=== PATIENT | male | born 1945 | race Caucasian/White ===

== ENCOUNTER 2020-02-29 10:46 | Emergency (ER) | payer OTHER, MEDICARE, BC ==
--- NOTE | 2020-02-29 11:12 | EKG REPORT ---
SEVERITY:- ABNORMAL ECG - SINUS RHYTHM SUPRAVENTRICULAR BIGEMINY RIGHT AXIS DEVIATION LOW VOLTAGE IN FRONTAL LEADS : Confirmed by: Vania Mcelroy MD 29-Feb-2020 11:12:13
--- NOTE | 2020-02-29 11:21 | ER Document Report ---
ED Medical Screen (RME) - General Chief Complaint: Constipation Stated Complaint: CONSTIPATION Time Seen by Provider: 02/29/20 11:14 Primary Care Provider: HARI MARSHALL PA-C [Primary Care Provider] - Follow up as needed Notes: HPI: 74-year-old male with prior history of cholecystectomy presenting for 10 days of constipation with mild right upper abdominal pain. Has not had nausea vomiting or fever. Patient has been using milk of magnesia at home without improvement in the constipation does not relate chronic constipation issues. Has not had a fever. PHYSICAL EXAMINATION: Bowel sounds are normal. Patient with minimal tenderness through the epigastric region on palpation. Lung sounds are clear to auscultation slightly abnormal rate and rhythm. EKG shows a bigeminal rhythm with a heart rate of 93, abnormal EKG I have greeted and performed a rapid initial assessment of this patient. A comprehensive ED assessment and evaluation of the patient, analysis of test results and completion of medical decision making process will be conducted by an additional ED providers. TRAVEL OUTSIDE OF THE [place] IN LAST 30 DAYS: No - Related Data Allergies/Adverse Reactions: No Known Allergies Allergy (Unverified 02/29/20 11:17) Past Medical History Pulmonary Medical History: Reports: Hx COPD Past Surgical History: Reports: Hx Genitourinary Surgery - Immunizations Hx Diphtheria, Pertussis, Tetanus Vaccination: No Physical Exam - Vital signs Vitals: Temp Pulse Resp BP Pulse Ox 97.6 F 41 L 16 142/68 H 95 02/29/20 10:54 02/29/20 10:54 02/29/20 10:54 02/29/20 10:54 02/29/20 10:54 Course - Vital Signs Vital signs: Temp Pulse Resp BP Pulse Ox 97.6 F 41 L 16 142/68 H 95 02/29/20 10:54 02/29/20 10:54 02/29/20 10:54 02/29/20 10:54 02/29/20 10:54 Doctor's Discharge - Discharge Referrals: HARI MARSHALL PA-C [Primary Care Provider] - Follow up as needed
--- NOTE | 2020-02-29 11:44 | RADIOLOGY REPORT (SQ) ---
EXAM DESCRIPTION: ABDOMEN 2 VIEWS IMAGES COMPLETED DATE/TIME: 02/29/2020 11:32 am REASON FOR STUDY: abd pain/constipation COMPARISON: None. NUMBER OF VIEWS: Two views. TECHNIQUE: Supine and erect/decubitus radiographic images of the abdomen acquired. LIMITATIONS: None. FINDINGS: FREE AIR: None. No abnormal gas collections. LUNG BASES: Clear. BOWEL GAS PATTERN: Nonobstructive gas pattern. Moderate stool throughout the colon. CALCIFICATIONS: No suspicious calcifications. SOFT TISSUES: No gross mass or suggestion of organomegaly. HARDWARE: None in the abdomen. BONES: No acute fracture. No worrisome bone lesions. OTHER: No other significant finding. IMPRESSION: Moderate constipation. No evidence of mechanical obstruction. TECHNICAL DOCUMENTATION: JOB ID: [id number] 2010 [email or web address]- All Rights Reserved Reading location - IP/workstation name: [email or web address]
[2020-02-29 11:46] LABS: ABSOLUTE EOSINOPHILS # (AUTO) 0.1 10^3/uL (0.0-0.6); ABSOLUTE LYMPHOCYTES (AUTO) 1.5 10^3/uL (0.5-4.7); ABSOLUTE MONOCYTES (AUTO) 0.4 10^3/uL (0.1-1.4); ABSOLUTE NEUT (AUTO) 2.1 10^3/uL (1.7-8.2); BASOPHILS % (AUTO) 1.1 % (0-2); EOSINOPHILS % (AUTO) 1.6 % (0-6); HEMATOCRIT 45.2 % (37.9-51.0); HEMOGLOBIN 15.4 g/dL (13.5-17.0); LYMPHOCYTES % (AUTO) 36.2 % (13-45); MEAN CORPUSCULAR HGB CONC 34.1 g/dL (32.0-36.0); MEAN CORPUSCULAR VOLUME 97 fl (80-97); MONOCYTES % (AUTO) 8.9 % (3-13); PLATELET COUNT 180 10^3/uL (150-450); RED BLOOD COUNT 4.67 10^6/uL (4.35-5.55); SEGMENTED NEUTROPHILS % (AUTO) 52.2 % (42-78); TOTAL CELLS COUNTED % (AUTO) 100 %
[2020-02-29 11:52] LABS: ALKALINE PHOSPHATASE 52 U/L (38-126); ANION GAP 6 (5-19); ASPARTATE AMINO TRANSFERASE 27 U/L (17-59); BILIRUBIN,TOTAL 0.4 mg/dL (0.2-1.3); BLOOD UREA NITROGEN 13 mg/dL (7-20); CALCIUM 9.3 mg/dL (8.4-10.2); CARBON DIOXIDE 27 mmol/L (22-30); CHLORIDE 104 mmol/L (98-107); GLUCOSE 118 mg/dL (75-110); POTASSIUM 4.3 mmol/L (3.6-5.0); TOTAL PROTEIN 6.9 g/dL (6.3-8.2)
[2020-02-29 12:48] LABS: APPEARANCE,URINE CLEAR; BILIRUBIN,URINE NEGATIVE (NEGATIVE); COLOR,URINE STRAW; GLUCOSE, URINE NEGATIVE (NEGATIVE); KETONES,URINE TRACE mg/dL (NEGATIVE); LEUKOCYTE ESTERASE,URINE NEGATIVE (NEGATIVE); NITRITE,URINE NEGATIVE (NEGATIVE); PROTEIN,URINE NEGATIVE (NEGATIVE); URINE SPECIFIC GRAVITY 1.003; UROBILINOGEN,URINE NEGATIVE mg/dL (<2.0)
--- NOTE | 2020-02-29 13:04 | ER Document Report ---
ED General - General Chief Complaint: Constipation Stated Complaint: CONSTIPATION Time Seen by Provider: 02/29/20 11:14 Primary Care Provider: HARI MARSHALL PA-C [COMMUNITY BASED STAFF] - Follow up as needed Mode of Arrival: Ambulatory Information source: Patient TRAVEL OUTSIDE OF THE [place] IN LAST 30 DAYS: No - HPI Notes: Patient presents complaint of abdominal pain. He states is mainly in the right upper quadrant. It is mild and crampy. It is intermittent. Nothing makes better or worse. He states he is been unable to have a bowel movement for several weeks and he feels like he is constipated. He states he has chronic problems with constipation. He states he is had 3 colonoscopies in the past and they have all been normal. No vomiting or fevers. - Related Data Allergies/Adverse Reactions: No Known Allergies Allergy (Unverified 02/29/20 11:17) Past Medical History - General Information source: Patient - Social History Smoking Status: Never Smoker Frequency of alcohol use: None Drug Abuse: None Family History: None Pulmonary Medical History: Reports: Hx COPD Past Surgical History: Reports: Hx Genitourinary Surgery - Immunizations Hx Diphtheria, Pertussis, Tetanus Vaccination: No Review of Systems - Review of Systems Constitutional: denies: Chills, Fever Cardiovascular: denies: Chest pain, Palpitations Respiratory: denies: Cough, Short of breath -: Yes All other systems reviewed and negative Physical Exam - Vital signs Vitals: Temp Pulse Resp BP Pulse Ox 97.6 F 41 L 16 142/68 H 95 02/29/20 10:54 02/29/20 10:54 02/29/20 10:54 02/29/20 10:54 02/29/20 10:54 Interpretation: Bradycardic - General General appearance: Appears well, Alert - HEENT Head: Normocephalic, Atraumatic Eyes: Normal Pupils: PERRL - Respiratory Respiratory status: No respiratory distress Chest status: Nontender Breath sounds: Normal Chest palpation: Normal - Cardiovascular Rhythm: Other - Heart rate is irregular but in the 60s. Heart sounds: Normal auscultation Murmur: No - Abdominal Inspection: Normal Distension: No distension Bowel sounds: Normal Tenderness: Tender - Mild tenderness in the right upper quadrant. Organomegaly: No organomegaly - Back Back: Normal, Nontender - Extremities General upper extremity: Normal inspection, Nontender, Normal color, Normal ROM, Normal temperature General lower extremity: Normal inspection, Nontender, Normal color, Normal ROM, Normal temperature, Normal weight bearing. No: Tana's sign - Neurological Neuro grossly intact: Yes Cognition: Normal Orientation: AAOx4 Nelsy Coma Scale Eye Opening: Spontaneous Docena Coma Scale Verbal: Oriented Docena Coma Scale Motor: Obeys Commands Nelsy Coma Scale Total: 15 Speech: Normal Motor strength normal: LUE, RUE, LLE, RLE Sensory: Normal - Psychological Associated symptoms: Normal affect, Normal mood - Skin Skin Temperature: Warm Skin Moisture: Dry Skin Color: Normal Course - Re-evaluation Re-evalutation: 02/29/20 13:04 Patient presents with constipation. He has a soft and nondistended abdomen. He has a nonsurgical abdomen. Vital signs are stable. He was noticed to be somewhat bradycardic at triage but when 1 looks at his EKG you can see that he has some supraventricular beats. This was compared to his EKG 6 years ago and it is unchanged. Patient's laboratories are also unremarkable. Most prudent co urse at this time seems to be a trial of outpatient medication to see if the constipation improves. - Vital Signs Vital signs: Temp Pulse Resp BP Pulse Ox 97.6 F 41 L 16 142/68 H 95 02/29/20 10:54 02/29/20 10:54 02/29/20 10:54 02/29/20 10:54 02/29/20 10:54 - Laboratory Result Diagrams: 02/29/20 11:00 02/29/20 11:00 Laboratory results interpreted by me: 02/29/20 02/29/20 11:00 12:30 Sodium 136.5 L Glucose 118 H Magnesium 2.4 H Urine Ketones TRACE H - Diagnostic Test Radiology reviewed: Image reviewed, Reports reviewed Discharge - Discharge Clinical Impression: Constipation Qualifiers: Constipation type: chronic idiopathic constipation Qualified Code(s): K59.04 - Chronic idiopathic constipation Condition: Stable Disposition: HOME, SELF-CARE Instructions: Constipation ([facility]) Prescriptions: Peg 3350/Na Sulf,Bicarb,Cl/KCl [Golytely Solution 4000 ml] 4,000 ml PO DAILY #1 bottle Referrals: HARI MARSHALL PA-C [COMMUNITY BASED STAFF] - Follow up as needed
[2020-02-29 13:29] VITALS: BP 118/80
== END 2020-02-29 13:29 | disposition home or self-care (01) ==
LOC: ER 10:46
DX: K59.04 Chronic idiopathic constipation (principal); R10.11 Right upper quadrant pain; R10.811 Right upper quadrant abdominal tenderness; J44.9 Chronic obstructive pulmonary disease, unspecified; R00.1 Bradycardia, unspecified
CPT/HCPCS: 36415; 74019; 80053; 81001; 83690; 83735; 84484; 85025; 93005; 93010; 99284